=== PATIENT | male | born 1965 | race Caucasian/White ===

== ENCOUNTER 2022-10-04 17:23 | Emergency (ER) | payer SELFPAY ==
[2022-10-04 17:59] LABS: #Basophils 0.1 10x3/uL (0.0-0.2); #Eosinphils 0.1 10x3/uL (0.0-0.5); %Basophils 0.4 % (0.0-2.0); %Eosinophils 0.7 % (0.0-6.0); %Lymphocytes 15.7 % (18.0-47.0); %Neutrophils 74.8 % (40.0-75.0); Hemoglobin 12.9 g/dL (13.5-17.5); Mean Corpuscular HGB CONC 34.1 g/dL (32.0-36.0); Mean Corpuscular Hemoglobin 32.7 pg (27.0-33.0); Mean Corpuscular Volume 95.9 fl (81.2-95.1); Mean Platelet Volume 10.3 fl (7.4-10.4); Platelet Count 220 10x3/uL (150-450); RBC Distribution Width 12.4 % (11.5-14.5); Red Blood Cell (RBC) Count 3.94 10x6/uL (4.32-5.72)
[2022-10-04] MEDS ORDERED: Succinylcholine 200 MG/10 ml SYRINGE FS ONE (18:21)
[2022-10-04] MEDS ORDERED: PROPOFOL 20 ML ONE ×2 (18:21→18:41)
[2022-10-04] MEDS ORDERED: Dexamethasone 20 MG/5 ML VIAL ONE (18:21)
[2022-10-04] MEDS ORDERED: Midazolam HCl 2 mg/2 ml Vial ONE (18:21)
[2022-10-04] MEDS ORDERED: Fentanyl 100 MCG/2 ML VIAL ONE ×2 (18:21→19:35)
[2022-10-04] MEDS ORDERED: Ondansetron PF 4 MG/2 ML Vial ONE ×2 (18:21→18:39)
[2022-10-04] MEDS ORDERED: ePHEDrine Sulfate 50 MG/10 ML VIAL ONE (19:05)
[2022-10-04] MEDS ORDERED: Oxymetazoline HCl 0.05% ( 15 ML ) ONE (19:08)
[2022-10-04] MEDS ORDERED: EPINEPHrine 1 MG/ML AMP ONE (19:08)
[2022-10-04] MEDS ORDERED: Glycopyrrolate 0.2 MG/ML 5 ML SYRINGE ONE (19:09)
[2022-10-04] MEDS ORDERED: Ondansetron HCl/PF 4 MG/2 ML Vial IVP PRN (19:45)
[2022-10-04] MEDS ORDERED: Promethazine HCl 25 MG/ML VIAL IM/IV PRN (19:45)
== END 2022-10-04 18:26 | disposition admitted as inpatient to this hospital (09) ==
LOC: CSHERS 17:23
DX: R04.0 Epistaxis (principal); D72.829 Elevated white blood cell count, unspecified
CPT/HCPCS: 36415; 85025; 86850; 86900; 86901; 99284; C1713; J0171; J1100; J2250; J2405; J2704; J3010

== ENCOUNTER 2022-10-05 15:22 | Inpatient (IN) | payer SELFPAY ==
[2022-10-05 16:16] LABS: #Basophils 0.1 10x3/uL (0.0-0.2); #Eosinphils 0.1 10x3/uL (0.0-0.5); #Monocytes 0.9 10x3/uL (0.0-1.1); #Neutrophils 8.8 10x3/uL (1.5-8.4); %Basophils 0.4 % (0.0-2.0); %Eosinophils 0.8 % (0.0-6.0); %Lymphocytes 12.4 % (18.0-47.0); %Monocytes 8.1 % (0.0-10.0); %Neutrophils 77.9 % (40.0-75.0); Hemoglobin 11.9 g/dL (13.5-17.5); Mean Corpuscular HGB CONC 34.2 g/dL (32.0-36.0); Mean Corpuscular Hemoglobin 32.8 pg (27.0-33.0); Mean Corpuscular Volume 95.9 fl (81.2-95.1); Mean Platelet Volume 10.2 fl (7.4-10.4); Platelet Count 205 10x3/uL (150-450); RBC Distribution Width 12.3 % (11.5-14.5); Red Blood Cell (RBC) Count 3.63 10x6/uL (4.32-5.72); White Blood Cell (WBC) Count 11.3 10x3/uL (3.5-10.5)
[2022-10-05 16:17] LABS: PTT 25.2 sec (22.0-33.0); Prothrombin Time 10.8 sec (9.5-12.1)
[2022-10-05 16:20] LABS: ALT (SGPT) 23 U/L (8-55); AST (SGOT) 75 U/L (5-34); Albumin 4.5 g/dL (3.5-5.0); Alkaline Phosphatase 51 U/L (40-110); Anion Gap 14 mmol/L (10-20); BUN (Urea Nitrogen) 12 mg/dL (8.4-25.7); Calc. Creatinine Clearance 0 mL/min (70-130); Calcium 9.5 mg/dL (7.8-10.44); Carbon Dioxide 26 mmol/L (22-29); Chloride 100 mmol/L (98-107); Estimated GFR 100; Globulin 3.1 g/dL (2.4-3.5); Glucose 170 mg/dL (70-105); Potassium 4.2 mmol/L (3.5-5.1); Protein, Total 7.6 g/dL (6.0-8.3); Sodium 136 mmol/L (136-145)
[2022-10-05] MEDS ORDERED: Morphine 4 MG/ML VIAL ONE (16:26)
[2022-10-05] MEDS ORDERED: Lisinopril 10 MG TAB ONE (16:26)
[2022-10-05] MEDS ORDERED: Dexamethasone 20 MG, Admixture Fee 1 EACH in Sodium Chloride 0.9% 50 ML IVPB SCH (17:00)
[2022-10-05] MEDS ORDERED: Dexamethasone 10 MG, Admixture Fee 1 EACH in Sodium Chloride 0.9% 50 ML IVPB SCH (17:00)
[2022-10-05] MEDS ORDERED: Ondansetron PF 4 MG/2 ML Vial IVP PRN (17:38)
[2022-10-05] MEDS ORDERED: Acetaminophen 325 MG TAB PO PRN (17:38)
[2022-10-05] MEDS ORDERED: Ondansetron ODT 4 MG TAB PO PRN (17:38)
[2022-10-05] MEDS ORDERED: Lorazepam 1 MG TAB PO PRN (17:44)
[2022-10-05] MEDS ORDERED: Lorazepam 2 MG/ML VIAL IM PRN (17:44)
[2022-10-05] MEDS ORDERED: Electrolyte Replacement Protocol 1 EACH FS SCH (17:45)
[2022-10-05] MEDS ORDERED: HYDROcodone/Acetaminophen 5/325 mg Tablet ONE (17:54)
[2022-10-05] MEDS ORDERED: hydrALAZINE 20 MG/ML VIAL SLOW IVP PRN (18:11)
[2022-10-05 18:13] LABS: Phosphorus 2.6 mg/dL (2.3-4.7)
[2022-10-05 18:34] LABS: Syphilis Antibody Nonreactive (Nonreactive); Syphilis Antibody Index 0.04 S/CO (<1.00 Non-Reactive)
[2022-10-05 18:40] VITALS: BMI 29.8
[2022-10-05] MEDS ORDERED: FLU VACC QS2022-23(6MOS UP)/PF 60 MCG/0.5 ML SYRINGE IM ONE (19:00)
[2022-10-05] MEDS: Lorazepam 1 MG TAB PO SCH (19:24)
[2022-10-05] MEDS: Thiamine HCl 200 MG/2 ML VIAL SLOW IVP SCH (19:28)
[2022-10-05] MEDS ORDERED: Magnesium 2 GM/50 ML(in water) 2 GM in Premix Bag 1 BAG IVPB SCH (19:30)
[2022-10-05 20:11] LABS: Amphetamine Not Detected (NotDetected); Barbiturates Screen Not Detected (NotDetected); Benzodiazepine Screen Not Detected (NotDetected); Cocaine Metabolite Screen Not Detected (NotDetected); Methadone Not Detected (NotDetected); Methamphetamine Not Detected (NotDetected); Opiate Screen Detected (NotDetected); Oxycodone Screen Not Detected (NotDetected); Phencyclidine (PCP) Not Detected (NotDetected); THC/Cannabinoid Screen Not Detected (NotDetected); Tricyclic Screen Not Detected (NotDetected)
[2022-10-05] MEDS: HYDROcodone/Acetaminophen 5/325 mg Tablet PO PRN (21:50)
[2022-10-06] MEDS: Lorazepam 1 MG TAB PO SCH ×3 (01:07→12:57)
[2022-10-06 06:04] LABS: Anion Gap 13 mmol/L (10-20); BUN (Urea Nitrogen) 10 mg/dL (8.4-25.7); Calc. Creatinine Clearance 151 mL/min (70-130); Calcium 8.9 mg/dL (7.8-10.44); Carbon Dioxide 26 mmol/L (22-29); Chloride 100 mmol/L (98-107); Estimated GFR 105; Glucose 148 mg/dL (70-105); Magnesium 2.3 mg/dL (1.6-2.6); Sodium 135 mmol/L (136-145)
[2022-10-06 06:09] LABS: #Basophils 0.1 10x3/uL (0.0-0.2); #Eosinphils 0.2 10x3/uL (0.0-0.5); #Monocytes 0.9 10x3/uL (0.0-1.1); #Neutrophils 8.9 10x3/uL (1.5-8.4); %Basophils 0.5 % (0.0-2.0); %Eosinophils 1.3 % (0.0-6.0); %Lymphocytes 11.9 % (18.0-47.0); %Monocytes 8.1 % (0.0-10.0); %Neutrophils 77.8 % (40.0-75.0); Hemoglobin 11.4 g/dL (13.5-17.5); Mean Corpuscular Volume 96.9 fl (81.2-95.1); Mean Platelet Volume 10.4 fl (7.4-10.4); Platelet Count 215 10x3/uL (150-450); RBC Distribution Width 12.3 % (11.5-14.5); Red Blood Cell (RBC) Count 3.56 10x6/uL (4.32-5.72); White Blood Cell (WBC) Count 11.5 10x3/uL (3.5-10.5)
[2022-10-06] MEDS ORDERED: Dexamethasone 20 MG/5 ML VIAL SLOW IVP ONE (07:00)
[2022-10-06] MEDS ORDERED: Dexamethasone 20 MG, Admixture Fee 1 EACH in Sodium Chloride 0.9% 50 ML IVPB SCH (07:00)
[2022-10-06] MEDS ORDERED: cloNIDine 0.1 MG TAB PO PRN (08:03)
[2022-10-06] MEDS: Folic Acid 1 MG TAB PO SCH (08:44)
[2022-10-06] MEDS: Multivit, Therapeutic 1 TAB PO SCH (08:45)
[2022-10-06] MEDS: HYDROcodone/Acetaminophen 5/325 mg Tablet PO PRN ×2 (08:45→17:34)
[2022-10-06] MEDS: Lisinopril 20 MG TAB PO SCH (08:46)
[2022-10-06] MEDS ORDERED: Carvedilol 6.25 MG TAB PO SCH (09:00)
[2022-10-06] MEDS: AMOXicillin 250 MG CAP PO SCH ×2 (09:24→21:49)
[2022-10-06] MEDS: Thiamine HCl 200 MG/2 ML VIAL SLOW IVP SCH (17:32)
[2022-10-06] MEDS ORDERED: Lorazepam 1 MG TAB PO PRN (17:44)
[2022-10-06] MEDS: Metoprolol Tartrate 25 MG TAB PO SCH (21:50)
[2022-10-07] MEDS: HYDROcodone/Acetaminophen 5/325 mg Tablet PO PRN ×2 (00:05→09:30)
[2022-10-07] MEDS ORDERED: Dexamethasone 20 MG, Admixture Fee 1 EACH in Sodium Chloride 0.9% 50 ML IVPB SCH (06:00)
[2022-10-07] MEDS ORDERED: Dexamethasone 20 MG/5 ML VIAL SLOW IVP ONE (06:00)
[2022-10-07 08:05] VITALS: TEMP 98.1
[2022-10-07] MEDS: Folic Acid 1 MG TAB PO SCH (09:29)
[2022-10-07] MEDS: Lisinopril 20 MG TAB PO SCH (09:29)
[2022-10-07] MEDS: Metoprolol Tartrate 25 MG TAB PO SCH (09:29)
[2022-10-07] MEDS: Multivit, Therapeutic 1 TAB PO SCH (09:29)
[2022-10-07] MEDS: AMOXicillin 250 MG CAP PO SCH (09:29)
[2022-10-07 11:57] VITALS: BP 124/53
[2022-10-07] MEDS ORDERED: Lorazepam 1 MG TAB PO PRN (17:44)
[2022-10-07] MEDS ORDERED: Lorazepam 0.5 MG TAB PO SCH (17:45)
[2022-10-08] MEDS ORDERED: Lorazepam 0.5 MG TAB PO PRN (17:44)
[2022-10-08] MEDS ORDERED: Thiamine 100 MG TAB PO SCH (17:45)
== END 2022-10-07 15:20 | disposition home or self-care (01) | DRG 151 ==
LOC: CSHERS 15:22 → CSHTELE 17:55 → OBSVTOIN 10-06 13:30
PROVIDERS: ADMIT Family Medicine; ATTEND Family Medicine
DX: R04.0 Epistaxis (principal); D62 Acute posthemorrhagic anemia; I16.0 Hypertensive urgency; E83.42 Hypomagnesemia; F10.20 Alcohol dependence, uncomplicated; Z98.890 Other specified postprocedural states
CPT/HCPCS: 36415; 80048; 80053; 80306; 83735; 84100; 85025; 85610; 85730; 86780; 94640; 94760; 96374; 96375; G0378; J1100; J2270; J3411; J3475